=== PATIENT | male | born 1955 | race Caucasian/White ===

== ENCOUNTER → 2017-02-09 | Outpatient (CLI) | payer MEDICARE ==
[~2017-02-09] MED LIST: ATOR80TA76 PO; DOCU100C19 PO; GABA-336 PO; LOSA25TA34 PO; MULT-31 PO; PHEN100C4 PO; PHEN100C84 PO; SENN1TAB15 PO
--- NOTE | 2017-02-09 14:52 | DI ---
Indication: ITS.REASON: M54.5 LBP PROCEDURE: MRI LUMBAR SPINE W/O CONTRAST: Encounter: Initial Comparison: None Technique: Multiplanar multisequence MR imaging of the lumbar spine was performed without contrast. Findings: Alignment of the lumbar spine is within normal limits. There are compression fractures of the L2 and L3 vertebra with acute edema present. There is mild height loss at L1 which appears to be due to a chronic compression fracture. Height loss at L2 is less than 15%. There is significant height loss at L3 which is approximately 75% in the midportion. Chronic moderate compression fracture of L4 without acute edema. The conus medullaris terminates normally at L1. The paraspinal soft tissues show left-sided renal cysts. Segmental analysis: L1-L2: No focal disk herniation, central canal or neural foraminal stenosis. L2-L3: Degenerative facet disease with a small disk bulge contributing to moderate central canal stenosis. Mild left foraminal stenosis. No significant right neural foraminal narrowing. Prominent osteophyte formation. L3-L4: No focal disk herniation or central canal stenosis. Mild bony left neural foraminal narrowing. No right foraminal stenosis. L4-L5: Central disk protrusion with degenerative facet hypertrophy and ligamentum flavum thickening causing compression of the thecal sac and severe central canal stenosis. Moderate right and severe left neural foraminal stenosis. L5-S1: Mild central disk bulging without focal central canal stenosis. Degenerative facet hypertrophy contributing to moderate right neural foraminal stenosis. No significant left foraminal narrowing. Impression: 1. Recent appearing L2 and L3 compression fractures. Patient may benefit from vertebroplasty. 2. Degenerative disk and facet changes, worst at L4-L5 with severe central canal and left neural foraminal stenosis. Epidural steroid injection may be of benefit. .
== END ==
LOC: IMA 13:22
PROVIDERS: ATTEND Physician Assistant
DX: M48.56XA Collapsed vertebra, not elsewhere classified, lumbar region, initial encounter for fracture (principal); M47.816 Spondylosis without myelopathy or radiculopathy, lumbar region; M48.06 Spinal stenosis, lumbar region; M51.26 Other intervertebral disc displacement, lumbar region; M51.27 Other intervertebral disc displacement, lumbosacral region